=== PATIENT | male | born 1980 | race African-American/Black ===

== ENCOUNTER 2022-09-25 09:33 | Emergency (ER) | payer SELFPAY ==
[~2022-09-25] VITALS: Ht 177.8 cm; Wt 116.3 kg
[2022-09-25 10:17] VITALS: BP 144/63
[2022-09-25] MEDS ORDERED: METH750T22 PO (11:31)
[2022-09-25] MEDS ORDERED: IBUP800T27 PO (11:31)
[2022-09-25] MEDS ORDERED: HYDROcodone-ACET 5/325MG TAB PO ONE (11:45)
== END 2022-09-25 11:43 | disposition home or self-care (01) ==
LOC: ER 09:33
DX: S16.1XXA Strain of muscle, fascia and tendon at neck level, initial encounter (principal); F17.210 Nicotine dependence, cigarettes, uncomplicated; Z88.6 Allergy status to analgesic agent; Y93.B2 Activity, push-ups, pull-ups, sit-ups; Y93.89 Activity, other specified; Y92.89 Other specified places as the place of occurrence of the external cause; Y99.8 Other external cause status
CPT/HCPCS: 72040